=== PATIENT | male | born 1970 | race Caucasian/White ===

== ENCOUNTER → 2021-07-18 10:25 | Outpatient (CLI) | payer OTHER, SELFPAY ==
--- NOTE | ~2021-07-18 | XR_ITS ---
EXAMINATION: XR cervical spine 4-5V EXAM DATE: 07/18/2021 11:27 INDICATION: Acute cervical spine pain without radiation pain. TECHNIQUE: Cervical spine frontal, lateral, lateral swimmers, and open-mouth odontoid projections. Bilateral oblique projections of the cervical spine. There is no prior study for comparison. FINDINGS: Oblique projections demonstrates no more than mild mid cervical neural foraminal stenosis a t any given level due to arthropathy. There is mild cervical dextroscoliosis. Mild cervical arthropat hy. Mild C5-6 disc disease. The odontoid process is intact. The lateral masses of C1 line up with C2 . Prevertebral soft tissue and pre-dens space are within normal limits. Incidental note made of nodular density measuring about 5 mm projecting over the right upper lobe whi ch could be intraparenchymal lung nodule, statistically most likely postinfectious but consider follo w-up nonemergent chest CT without contrast. IMPRESSION: 1. Indeterminate small right upper lobe nodular density; consider noncontrast chest CT. 2. Mild cervical dextroscoliosis and spondylosis. Reviewed, dictated and finalized at location A.
== END ==
PROVIDERS: Visit Provider Chiropractor
DX: M47.892 Other spondylosis, cervical region (principal)
CPT/HCPCS: 72050

== ENCOUNTER → 2021-07-29 11:58 | Outpatient (CLI) | payer OTHER, SELFPAY ==
--- NOTE | ~2021-07-29 | CT_ITS ---
EXAMINATION:CT diagnostic chest wo con DATE: 07/29/2021 12:18 INDICATION: Right lung nodule. TECHNIQUE: Computed tomography (CT) of the chest was performed without intravenous contrast. Automate d exposure control and iterative reconstruction technique were employed. The dose-length product (DLP ) was 343.37 mGy-cm. COMPARISON: Cervical spine radiographs 07/18/2021 FINDINGS: There is a 3 mm nodule in left upper lobe, likely benign. No pleural effusion. The heart si ze is normal. No pericardial effusion. There is mild bilateral gynecomastia. There is mild thoracic s pondylosis. IMPRESSION: 1. No right lung nodule to correlate with the cervical spine radiograph finding. Reviewed, dictated and finalized at location B. IMPRESSION: 1. No right lung nodule to correlate with the cervical spine radiograph finding .
== END ==
PROVIDERS: PCP Internal Medicine; Visit Provider Chiropractor
DX: R93.89 Abnormal findings on diagnostic imaging of other specified body structures (principal); M54.12 Radiculopathy, cervical region
CPT/HCPCS: 71250

== ENCOUNTER 2021-08-02 08:47 | Emergency (ER) | payer OTHER, SELFPAY ==
--- NOTE | ~2021-08-02 | CT_ITS ---
EXAMINATION: CT cervical spine wo con DATE: 08/02/2021 10:39 INDICATION: Right neck pain. Radiculopathy. TECHNIQUE: Computed tomography (CT) of the cervical spine was performed without intravenous contrast. Automated exposure control and iterative reconstruction technique were employed. The dose-length pro duct was 488.68 mGy-cm. COMPARISON: Cervical spine radiographs 07/18/2021 FINDINGS: There is 14 degrees dextrocurvature scoliosis of cervical thoracic spine. Vertebral body he ights are normal. There is mildly decreased disc height at C6-C7. The following disc levels are speci fically discussed: C2-C3: There is no uncovertebral joint osteoarthritis. There is mild bilateral facet joint osteoarthr itis. There is no neural foraminal stenosis. There is no central canal stenosis. C3-C4: There is mild bilateral uncovertebral joint osteoarthritis. There is mild bilateral facet join t osteoarthritis. There is no neural foraminal stenosis. There is mild central canal stenosis. C4-C5: There is mild bilateral uncovertebral joint osteoarthritis. There is mild bilateral facet join t osteoarthritis. There is no neural foraminal stenosis. There is mild central canal stenosis. C5-C6: There is mild left uncovertebral joint osteoarthritis. There is moderate right facet joint ost eoarthritis. There is no neural foraminal stenosis. There is no central canal stenosis. C6-C7: There is no uncovertebral joint osteoarthritis. There is mild right facet joint osteoarthritis . There is no neural foraminal stenosis. There is no central canal stenosis. C7-T1: There is no uncovertebral joint osteoarthritis. There is mild right and moderate left facet edmundo int osteoarthritis. There is mild left neural foraminal stenosis. There is no central canal stenosis. IMPRESSION: 1. Mild cervical spondylosis. 2. Cervicothoracic dextroscoliosis. Reviewed, dictated and finalized at location B.
[2021-08-02 09:09] VITALS: BP 135/89; PULSE 62; RESP 18; TEMP 36.8; O2SAT 99
--- NOTE | 2021-08-02 10:30 | ED.NECK ---
HPI - Neck Pain/Injury General Chief Complaint: Neck Pain/Injury <Glenis Goodwin PA-C - Last Filed: 08/02/21 16:50> Stated Complaint: neck pain <BOOKER Iglesias Last Filed: 08/02/21 16:50> Time Seen by Provider: 08/02/21 10:03 <BOOKER Iglesias Last Filed: 08/02/21 16:50> Source: patient <BOOKER Iglesias Last Filed: 08/02/21 16:50> Mode of arrival: ambulatory <BOOKER Iglesias Last Filed: 08/02/21 16:50> Limitations: no limitations <BOOKER Iglesias Last Filed: 08/02/21 16:50> History of Present Illness HPI Narrative: Patient is a 51-year-old male who presents the ED with report of persistent right-sided neck pain. Patient reports he has been dealing with this pain for the past 1 month. He denies any specific injury or fall but does note that he lifts heavy grain bags at work and felt like the pain may have started after doing so. Patient has been seeing a chiropractor and had outpatient cervical spine x-ray done on 07/18 which showed arthritis but no acute fractures. He has been receiving chiropractic treatments, but states the pain was worse after his last treatment. Patient has also been taking ibuprofen routinely and methocarbamol at night which does provide relief of his pain, however when they wear off he is in pain again. He is scheduled to see his primary care doctor next week for this. The pain does radiate somewhat to his superior right shoulder but not down his right arm. No chest pain, shortness of breath, numbness, tingling, weakness, back pain. <BOOKER Iglesias Last Filed: 08/02/21 16:50> Related Data Allergies/Adverse Reactions: Allergies Allergy/AdvReac Type Severity Reaction Status Date / Time lidocaine Allergy Unknown Unknown Verified 08/02/21 09:16 <BOOKER Iglesias Last Filed: 08/02/21 16:50> Review of Systems Review of Systems: CONSTITUTIONAL: Denies fever, chills, or sweats. EYES: Denies visual changes. CARDIOVASCULAR: Denies chest pain. RESPIRATORY: Denies dyspnea. GASTROINTESTINAL: Denies nausea, vomiting. MUSCULOSKELETAL: Reports R sided neck pain. Denies back pain. NEUROLOGIC: Denies headache, numbness, tingling, or weakness. <Glenis Goodwin PA-C - Last Filed: 08/02/21 16:50> All systems reviewed & are unremarkable except as noted in HPI and below <Glenis Goodwin PA-C - Last Filed: 08/02/21 16:50> PMFSH Past Medical History Medical History: Medical History (Updated 08/02/21 @ 16:32 by Glenis Goodwin PA-C) No pertinent past medical history <Glenis Goodwin PA-C - Last Filed: 08/02/21 16:50> Surgical History Surgical History: Surgical History (Updated 08/02/21 @ 16:33 by Glenis Goodwin PA-C) No pertinent past surgical history <Glenis Goodwin PA-C - Last Filed: 08/02/21 16:50> Family History Family History: Family History (Updated 11/09/15 @ 23:21 by DOCTOR UNKNOWN) Mother Patient's mother is in good health Father Patient's father is in good health Sibling Patient's sister is in good health Family history of malignant neoplasm of testis <Glenis Goodwin PA-C - Last Filed: 08/02/21 16:50> Social History Social History: Social History Smoking status: Never smoker Alcohol intake: current <Glenis Goodwin PA-C - Last Filed: 08/02/21 16:50> Exam Narrative: GENERAL: Well appearing, well-nourished, non-toxic, in no acute distress. HEAD: Normocephalic, atraumatic. NECK: Supple. No adenopathy, no masses. Mildly decreased R cervical neck rotation and lateral flexion due to pain. No midline cervical spinal tenderness. RESPIRATORY: Airway patent, respirations nonlabored. Clear to auscultation bilaterally, no rales, rhonchi, wheezing. CARDIOVASCULAR: Regular rate and rhythm without murmurs, rubs, or gallops. Radial pulses 2+ and equal bilaterally. MUSCULOSKELETAL: Moves all extremities. Strength/ROM intact o
[2021-08-02] MEDS: diazePAM INJ (*CRX) 10 MG/2 ML SYRINGE 2 MG IV PUSH (10:57)
[2021-08-02 12:13] VITALS: BP 115/78; PULSE 56; RESP 18; O2SAT 95
== END 2021-08-02 12:24 | disposition home or self-care (01) ==
PROVIDERS: Emergency Provider Physician Assistant; PCP Internal Medicine
DX: S16.1XXA Strain of muscle, fascia and tendon at neck level, initial encounter (principal); M47.812 Spondylosis without myelopathy or radiculopathy, cervical region; X50.0XXA Overexertion from strenuous movement or load, initial encounter
CPT/HCPCS: 72125; 96365; 96375; 99284; J0131; J3360

== ENCOUNTER → 2021-08-07 11:03 | Outpatient (CLI) | payer SELFPAY ==
--- NOTE | ~2021-08-07 | MR_ITS ---
EXAMINATION: MR cervical spine wo con DATE: 08/07/2021 11:45 INDICATION: Cervical spine pain TECHNIQUE: Magnetic resonance imaging (MRI) of the cervical spine was performed without intravenous c ontrast. Sequences included sagittal T2-weighted FSE, sagittal T2-weighted FS FSE, sagittal T1-weight ed FSE, axial MERGE and axial T2-weighted FSE. COMPARISON: CT dated 08/02/2021 FINDINGS: 10 degrees cervicothoracic dextrocurvature. Straightening of the normal cervical lordosis. Vertebral body heights are normal. Bone marrow signal intensity is normal. Mild left side predominant disc he ight loss at C6-C7 and mild right-sided predominant disc height loss at C3-C4 and C4-C5. Cord signal intensity is normal. Cervical soft tissues are unremarkable. The following disc levels are specifical ly discussed: C2-C3: The disc does not extend beyond the endplate margin. There is no uncovertebral joint osteoarth ritis. There is mild bilateral facet joint osteoarthritis. There is no neural foraminal stenosis. The re is no central canal stenosis. C3-C4: Annular fissure and right paracentral to foraminal zone disc extrusion which measures 7 mm med ial to lateral, 4-5 mm craniocaudally and 3 mm anteroposteriorly narrowing the right lateral recess. There is mild bilateral uncovertebral joint osteoarthritis. There is mild bilateral facet joint osteo arthritis. There is mild right neural foraminal stenosis. There is mild central canal stenosis. C4-C5: Disc is mildly bulging. There is mild bilateral uncovertebral joint osteoarthritis. There is m ild bilateral facet joint osteoarthritis. There is minimal bilateral neural foraminal stenosis. There is mild central canal stenosis. C5-C6: The disc does not extend beyond the endplate margin. There is mild left uncovertebral joint os teoarthritis. There is mild left and moderate right facet joint osteoarthritis. There is no neural fo raminal stenosis. There is no central canal stenosis. C6-C7: The disc does not extend beyond the endplate margin. There is mild left uncovertebral joint os teoarthritis. There is mild right facet joint osteoarthritis. There is mild left neural foraminal poli nosis. There is no central canal stenosis. C7-T1: The disc does not extend beyond the endplate margin. There is no uncovertebral joint osteoarth ritis. There is mild right and mild to moderate left facet joint osteoarthritis. There is mild left n eural foraminal stenosis. There is no central canal stenosis. IMPRESSION: 1. 10 degrees cervicothoracic dextroscoliosis. 2. Mild cervical spondylosis most notable for a right paracentral to foraminal zone disc extrusion at C3-C4 which significantly narrows the right lateral recess at this level. Reviewed, dictated and finalized at location B. IMPRESSION: 1. 10 degrees cervicothoracic dextroscoliosis. 2. Mild cervical spondylosis most notable for a right paracentral to foraminal zone disc extrusion at C3-C4 which significantly narrows the right lateral rece ss at this level.
== END ==
PROVIDERS: PCP Internal Medicine; Visit Provider Chiropractor
DX: M47.22 Other spondylosis with radiculopathy, cervical region (principal)
CPT/HCPCS: 72141

== ENCOUNTER 2022-05-15 10:09 | Day surgery (SDC) | payer OTHER, SELFPAY ==
[2022-03-25 11:48] VITALS: BMI 27.3
[2022-05-05 09:31] VITALS: BMI 26.4
[2022-05-15 11:22] VITALS: BMI 27.2
[2022-05-15 11:37] VITALS: BP 147/89; PULSE 70; RESP 18; TEMP 36.7; O2SAT 100
--- NOTE | 2022-05-15 12:15 | WPDANESEPPF ---
Anes - Initial Pre Proc Eval Procedure: Operation Date: 05/15/22 12:30 Proposed Procedures p Screening Colonoscopy - Dioni Duke MD Date/Time: 05/15/22 12:15 Surgeon: Dioni Duke MD Pre Op Diagnosis: Neoplasm Screening Patient Data Age: 51 Gender: M Height: 1.8 m Weight: 88.6 kg Last Vital Signs Temp 36.7 C 05/15/22 11:37 Pulse 70 05/15/22 11:37 Resp 18 05/15/22 11:37 BP 147/89 H 05/15/22 11:37 Pulse Ox 100 05/15/22 11:37 O2 Del Method Room Air 05/15/22 11:37 Allergies Allergy/AdvReac Type Severity Reaction Status Date / Time lidocaine [From Xylocaine] Allergy Dizziness Verified 05/15/22 11:15 Home Medications Medication Instructions Recorded Confirmed Type ascorbic acid (vitamin C) 500 mg 500 mg PO DAILY 08/06/21 05/15/22 History capsule cholecalciferol (vitamin D3) 10 10 mcg PO DAILY 08/06/21 05/15/22 History mcg (400 unit) capsule zinc gluconate 50 mg tablet 50 mg PO DAILY 08/06/21 05/15/22 History fluticasone propionate 50 2 spray intranasal DAILY #16 grams 02/24/22 05/15/22 Rx mcg/actuation nasal spray,suspension (Flonase Allergy Relief) sodium,potassium,mag sulfates 17.5 See Rx Instructions PO .COMPLEX 03/25/22 Rx gram-3.13 gram-1.6 gram oral soln #354 mL (Suprep Bowel Prep Kit) Patient hx anesthesia problems: none Family hx anesthesia problems: none Results Review: All pre-operative results and documents have been reviewed as part of the pre-operative evaluation. [facility] Past Medical History Medical History No pertinent past medical history Surgical History Surgical History (Updated 05/15/22 @ 12:22 by Alexander Boyle MD) H/O colonoscopy No pertinent past surgical history Family History Family History Mother Patient's mother is in good health Father Patient's father is in good health Sibling Patient's sister is in good health Family history of malignant neoplasm of testis Crohn's colitis Social History Social History Smoking status: Never smoker Tobacco type: cigarettes Second hand tobacco smoke exposure: No Alcohol intake: current Substance use: never Substance use type: does not use Lack of Transportation: No Lack of Food: Sometimes True Current Housing: I Have Housing Concerned About Future Housing: No Difficulty Paying Gas/Electric Bills: No Difficulty Paying for Meds: No Currently Unemployed: No Education: Bachelor's Degree Difficulty w/ Childcare or Family Care: No Living arrangements: with family Spiritual care concerns: No Anes - Eval Final PreProcedure Day of Procedure 05/15/22 12:15 Patient weight: overweight Heart: regular rate and rhythm Lungs: clear to auscultation Airway: Mallampati scale class 1 Last oral intake: >/= 8 hours ASA classification: II Emergent: no Anesthetic plan: proceed Anesthesia type and monitoring: general GIVS and standard monitoring Results Review: All pre-operative results and documents have been reviewed as part of the pre-operative evaluation. Informed Consent: The patient's anesthetic plan and its attendant risks and benefits were discussed with the patient/family/POA. Questions were solicited and answers provided to the satisfaction of the patient/family/POA.
[2022-05-15] MEDS: LACTATED RINGERS 1,000 ML 150 ML IV CONT (12:19)
--- NOTE | 2022-05-15 12:22 | PM.HPGS ---
History of Present Illness History of Present Illness Consent: Risks, benefits, and alternatives have been discussed and questions answered. Patient agrees to proceed with procedure. Chief complaint: Neoplasm Screening, Family hx of colon cancer Narrative: Pa Carlos is a 51 year old male Presents for screening colonoscopy. Patient's current weight appetite and bowel movements are normal. Patient denies abdominal pain. He has had no bleeding. Family history is significant his sister had familial adenomatous polyposis and with colorectal cancer. Runnels son also was identified to have this gene and underwent total colectomy because of multiple colon polyps. Both parents have been tested for FAP and found to be negative. Patient's last colonoscopy 5 years ago was unremarkable. He presents today for screening colonoscopy. Review of Systems Review of Systems: review of systems noncontributory. [facility] Past Medical History Medical History (Updated 05/15/22 @ 12:24 by Dioni Duke MD) No pertinent past medical history Surgical History Surgical History (Updated 05/15/22 @ 12:22 by Alexander Boyle MD) H/O colonoscopy No pertinent past surgical history Family History Family History Mother Patient's mother is in good health Father Patient's father is in good health Sibling Patient's sister is in good health Family history of malignant neoplasm of testis Crohn's colitis Social History Social History Smoking status: Never smoker Tobacco type: cigarettes Second hand tobacco smoke exposure: No Alcohol intake: current Substance use: never Substance use type: does not use Lack of Transportation: No Lack of Food: Sometimes True Current Housing: I Have Housing Concerned About Future Housing: No Difficulty Paying Gas/Electric Bills: No Difficulty Paying for Meds: No Currently Unemployed: No Education: Bachelor's Degree Difficulty w/ Childcare or Family Care: No Living arrangements: with family Spiritual care concerns: No Meds Home Medications and Allergies Home Medications Medication Instructions Recorded Confirmed Type ascorbic acid (vitamin C) 500 mg 500 mg PO DAILY 08/06/21 05/15/22 History capsule cholecalciferol (vitamin D3) 10 10 mcg PO DAILY 08/06/21 05/15/22 History mcg (400 unit) capsule zinc gluconate 50 mg tablet 50 mg PO DAILY 08/06/21 05/15/22 History fluticasone propionate 50 2 spray intranasal DAILY #16 grams 02/24/22 05/15/22 Rx mcg/actuation nasal spray,suspension (Flonase Allergy Relief) sodium,potassium,mag sulfates 17.5 See Rx Instructions PO .COMPLEX 03/25/22 Rx gram-3.13 gram-1.6 gram oral soln #354 mL (Suprep Bowel Prep Kit) Allergies Allergy/AdvReac Type Severity Reaction Status Date / Time lidocaine [From Xylocaine] Allergy Dizziness Verified 05/15/22 11:15 Vital Signs Vital Signs - 24 hr 05/15/22 11:37 Temperature 98.1 F Pulse Rate 70 Respiratory Rate 18 Blood Pressure 147/89 H Pulse Oximetry 100 Oxygen Delivery Room Air Exam Narrative: Physical exam reveals patient to be alert. Vital signs stable. HEENT exam is unremarkable. Lungs are clear to auscultation and percussion. Heart is without murmur or extra sounds. Abdomen bowel sounds are present soft nontender with no organomegaly. Digital external rectal exam is normal. Assessment and Plan Assessment and plan (1) Family hx of colon cancer: Code(s): Z80.0 - Family history of malignant neoplasm of digestive organs Status: Acute Assessment and Plan: Patient's sister and nephew have had colon cancer. They are felt to have had familial adenomatous polyposis. 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 Plan for surveillance col
[2022-05-15 12:46] VITALS: BP 129/82; PULSE 67; RESP 16; O2SAT 100
[2022-05-15 12:56] VITALS: BP 133/95; PULSE 70; RESP 16; O2SAT 99
--- NOTE | 2022-05-15 12:59 | WPDANESPN ---
Anes - Prog Note Post-Op Date/Time: 05/15/22 12:59 Cardiovascular status: normal Respiratory status: normal Airway patency: baseline Mental status: baseline Post-Op hydration status: normal Vital Signs: Last Vital Signs Temp 36.7 C 05/15/22 11:37 Pulse 67 05/15/22 12:46 Resp 16 05/15/22 12:46 BP 129/82 05/15/22 12:46 Pulse Ox 100 05/15/22 12:46 O2 Del Method Room Air 05/15/22 12:46 Pain Score (VAS): 0/10 I/O: Intake & Output 05/14/22 05/15/22 05/15/22 23:59 07:59 15:59 Intake Total 300 Balance 300 Patient Feedback: Patient satisfied with anesthetic care.
[2022-05-15 13:06] VITALS: BP 126/91; PULSE 61; RESP 16; O2SAT 99
--- NOTE | 2022-05-15 13:21 | SUR.PHASEII ---
PT AWAKE AND ALERT. TALKATIVE. EATING AND DRINKING. DENIES PAIN.
== END 2022-05-15 13:25 | disposition home or self-care (01) ==
PROVIDERS: PCP Internal Medicine; Visit Provider Internal Medicine Gastroenterology
PROC: 0DJD8ZZ Inspection of Lower Intestinal Tract, Via Natural or Artificial Opening Endoscopic (ICD-10-PCS; CPT 45378; principal; 2022-05-15 12:30)
DX: Z80.0 Family history of malignant neoplasm of digestive organs (principal)
CPT/HCPCS: 45378